=== PATIENT | female | born 1990 | race Caucasian/White ===

== ENCOUNTER 2024-01-27 06:35 | Outpatient (RCR) | payer OTHER, SELFPAY | END 2024-01-27 23:59 | disposition home or self-care (01) | LOC: RPT 06:35 | PROVIDERS: ATTENDING PHYSICIAN Obstetrics & Gynecology; FAMILY PHYSICIAN Family Medicine | DX: M54.51 Vertebrogenic low back pain (principal); Z73.6 Limitation of activities due to disability; R26.89 Other abnormalities of gait and mobility; M62.831 Muscle spasm of calf | CPT/HCPCS: 97112; 97162 ==

== ENCOUNTER 2024-02-10 13:48 | Observation (INO) | payer OTHER, SELFPAY ==
[2024-02-10 13:59] VITALS: BMI 29.2
[2024-02-10 14:25] VITALS: BP 130/64
== END 2024-02-10 14:45 | disposition home or self-care (01) ==
LOC: LDRP 13:48
PROVIDERS: ADMITTING PHYSICIAN Obstetrics & Gynecology
DX: M54.9 Dorsalgia, unspecified (principal); M62.830 Muscle spasm of back; Z3A.36 36 weeks gestation of pregnancy; O99.513 Diseases of the respiratory system complicating pregnancy, third trimester; J06.9 Acute upper respiratory infection, unspecified; O09.513 Supervision of elderly primigravida, third trimester; S23.29XA Dislocation of other parts of thorax, initial encounter; X58.XXXA Exposure to other specified factors, initial encounter; Y93.89 Activity, other specified; Y92.009 Unspecified place in unspecified non-institutional (private) residence as the place of occurrence of the external cause; Z88.1 Allergy status to other antibiotic agents
CPT/HCPCS: 59025; G0378

== ENCOUNTER 2024-02-26 11:17 | Outpatient (RCR) | payer OTHER, SELFPAY | END 2024-02-26 23:59 | disposition home or self-care (01) | LOC: RPT 11:17 | PROVIDERS: ATTENDING PHYSICIAN Obstetrics & Gynecology; FAMILY PHYSICIAN Family Medicine | DX: M54.51 Vertebrogenic low back pain (principal); Z73.6 Limitation of activities due to disability; R26.89 Other abnormalities of gait and mobility; M62.831 Muscle spasm of calf | CPT/HCPCS: 97112; 97530 ==

== ENCOUNTER → 2024-08-17 10:46 | Outpatient (REF) | payer BC, SELFPAY | LOC: WDC 10:46 | PROVIDERS: ATTENDING PHYSICIAN Obstetrics & Gynecology | DX: N63.12 Unspecified lump in the right breast, upper inner quadrant (principal) | CPT/HCPCS: 19000; 76942 ==